=== PATIENT | female | born 1965 | race African-American/Black ===

== ENCOUNTER 2018-07-22 18:41 | Emergency (ER) | payer OTHER ==
[2018-07-22 18:55] VITALS: BP 170/112
[2018-07-22] MEDS ORDERED: predniSONE TAB* 20 MG PO ONE (20:43)
[2018-07-22] MEDS ORDERED: Amoxicillin/Clavulanate TAB* 875 MG PO ONE (20:43)
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
[2018-07-22 20:45] LABS: ABS Basophils 0 10^3/ul (0-0.2); ABS Eosinophils 0.3 10^3/ul (0-0.6); ABS Lymphocytes 3.1 10^3/ul (1.0-4.8); ABS Monocytes 0.9 10^3/ul (0-0.8); ABS Neutrophils 3.7 10^3/ul (1.5-7.7); ABS Nucleated RBC 0 10^3/ul; Hematocrit 42 % (35-47); Hemoglobin 14.1 g/dl (12.0-16.0); Lymphocyte % 38.3 % (25-47); Mean Corpuscular HGB Conc 34 g/dl (31-36); Mean Corpuscular Hemoglobin 31 pg (27-31); Mean Corpuscular Volume 92 fL (80-97); Mean Platelet Volume 10.2 um3 (7.4-10.4); Nucleated Red Blood Cells % 0.2; Platelet Count 194 10^3/ul (150-450); Red Blood Count 4.58 10^6/ul (4.00-5.40); Red Cell Distribution Width 14 % (10.5-15)
[2018-07-22] MEDS ORDERED: Ibuprofen TAB* 800 MG PO ONE (20:47)
[2018-07-22 21:02] LABS: EGFR Non-African American 38.7 (>60)
== END 2018-07-22 21:41 | disposition home or self-care (01) ==
LOC: ED 18:41
DX: J32.9 Chronic sinusitis, unspecified (principal); Z88.1 Allergy status to other antibiotic agents; Z91.048 Other nonmedicinal substance allergy status; F17.210 Nicotine dependence, cigarettes, uncomplicated
CPT/HCPCS: 36415; 80053; 85025; 99283; A9270-GY; J7512

== ENCOUNTER 2019-04-05 22:00 | Emergency (ER) | payer OTHER ==
[2019-04-06] MEDS ORDERED: Acetaminophen TAB* 325 MG PO ONE (00:57)
--- NOTE | 2019-04-06 01:08 | ED ---
Lower Extremity - HPI Summary HPI Summary: A 54 y/o female presents to [facility] with a chief complaint of left knee pain and left hand pain after a mechanical fall today. She tried to catch herself from her fall by falling on her left hand. She has pain in her left hand and abrasions on her left knee. She rated her pain as a 8/10 in severity. - History of Current Complaint Chief Complaint: EDExtremityUpper Stated Complaint: HURT LT HAND PER PT Time Seen by Provider: 04/06/19 00:51 Hx Obtained From: Patient Mechanism Of Injury: Fall From A Standing Position Onset of Pain: Immediate, Post Accident, Prior to Arrival Onset/Duration: Still Present Severity Initially: Severe Severity Currently: Severe Pain Intensity: 8 Pain Scale Used: 0-10 Numeric Timing: Constant, Lasting Hours Location: Is Discrete @ - left knee and left hand Associated Signs And Symptoms: Positive: Knee Pain. Negative: Fever Aggravating Factor(s): Nothing Alleviating Factor(s): Nothing - Allergies/Home Medications Allergies/Adverse Reactions: Allergies Allergy/AdvReac Type Severity Reaction Status Date / Time Adhesive Tape Allergy Rash Verified 04/06/19 00:55 MS Cefaclor [From [facility]] Allergy Dizziness Verified 04/06/19 00:55 Home Medications: Home Medications Metoprolol Succinate 50 mg PO DAILY 04/06/19 [History Confirmed 04/06/19] PMH/Surg Hx/FS Hx/Imm Hx Endocrine/Hematology History: Denies: Hx Diabetes Cardiovascular History: Reports: Hx Hypercholesterolemia, Hx Hypertension, Other Cardiovascular Problems/Disorders - Hx HTN Denies: Hx Pacemaker/ICD GI History: Reports: Other GI Disorders - Hx ulcer History: Denies: Hx Renal Disease Musculoskeletal History: Reports: Hx Back Problems, Other Musculoskeletal History - right rotater cuff problems Sensory History: Reports: Hx Contacts or Glasses Opthamlomology History: Reports: Hx Contacts or Glasses Neurological History: Reports: Other Neuro Impairments/Disorders - SCIATICA, PAIN CLINIC PT Psychiatric History: Reports: Hx Post Traumatic Stress Disorder, Hx Bipolar Disorder Denies: Hx Panic Disorder - Cancer History Hx Chemotherapy: No Hx Radiation Therapy: No - Surgical History Surgery Procedure, Year, and Place: Bunionectomy L foot, surgical repair R hand cut, laparoscopy x 2 Infectious Disease History: No Infectious Disease History: Denies: Traveled Outside the [place] in Last 30 Days - Family History Known Family History: Positive: Cardiac Disease - Social History Alcohol Use: Occasionally Hx Substance Use: Yes Substance Use Type: Reports: Marijuana Substance Use Comment - Amount & Last Used: daily Hx Tobacco Use: Yes Smoking Status (MU): Current Every Day Smoker Type: Cigarettes Amount Used/How Often: 1/2 ppd Have You Smoked in the Last Year: Yes Review of Systems Negative: Fever Positive: Arthralgia, Myalgia All Other Systems Reviewed And Are Negative: Yes Physical Exam - Summary Physical Exam Summary: Constitutional: Well-developed, Well-nourished, Alert. (-) Distressed Skin: Warm, Dry HENT: Normocephalic; Atraumatic Eyes: Conjunctiva normal Neck: Musculoskeletal ROM normal neck. (-) JVD, (-) Stridor, (-) Tracheal deviation Cardio: Rhythm regular, rate normal, Heart sounds normal; Intact distal pulses; The pedal pulses are 2+ and symmetric. Radial pulses are 2+ and symmetric. Pulmonary/Chest wall: Effort normal. (-) Respiratory distress, (-) Wheezes, (-) Rales Abd: Soft, (-) tenderness, (-) Distension, (-) Guarding, (-) Rebound Musculoskeletal: 2 abrasions over left anterior knee, no tenderness along tibia , no bony tenderness along tibia or ankle, No contusion on femur Left hand tiny abrasion center of palm at base of third digit, 4th and 5th metacarpals, some discomfort on ROM but able to do it, no bony tenderness wrist , radius, or ulna, no tenderness of wrist or axial node of left thumb. Neuro: Alert, Oriented x3 Psych: Mood and affect Normal Triage Information Reviewed: Yes Vital Signs On Initial Exam: Initial Vitals Temp Pulse Resp BP Pulse Ox 97.6 F 81 16 124/94 97 04/05/19 22:03 04/05/19 22:03 04/05/19 22:03 04/05/19 22:03 04/05/19 22:03 Vital Signs Reviewed: Yes Diagnostics - Vital Signs Vital Signs Temp Pulse Resp BP Pulse Ox 04/05/19 23:52 98.3 F 70 16 132/93 98 04/05/19 22:03 97.6 F 81 16 124/94 97 - Laboratory Lab Statement: Any lab studies that have been ordered have been reviewed, and results considered in the medical decision making process. - Radiology knee x-ray Radiology Interpretation Completed By: ED Physician Summary of Radiographic Findings: No fracture. Pending official imaging report. Hand x-ray Radiology Interpretation Completed By: ED Physician Summary of Radiographic Findings: No fracture. Pending official imaging report Lower Extremity Course/Dx - Course Course Of Treatment: A 54 y/o female presents to [facility] with a chief complaint of left knee pain and left hand pain after a mechanical fall today. She tried to catch herself from her fall by falling on her left hand. She has pain in her left hand and abrasions on her left knee. The physical exam revealed 2 abrasions over left anterior knee, no tenderness along tibia, no bony tenderness along tibia or ankle, No contusion on femur. Left hand tiny abrasion center of palm at base of third digit, 4th and 5th metacarpals, some discomfort on ROM but able to do it, no bony tenderness wrist, radius, or ulna, no tenderness of wrist or axial node of left thumb. Knee x-ray and hand x-ray show no fracture. In the ED course the patient was given Tylenol PO. The patient will be discharged home and follow up with her PCP. The patient is agreeable with this plan. - Diagnoses Provider Diagnoses: Hand contusion, Knee contusion Discharge - Sign-Out/Discharge Documenting (check all that apply): Patient Departure - DC Patient Received Moderate/Deep Sedation with Procedure: No - Discharge Plan Condition: Good Disposition: HOME Patient Education Materials: Contusion in Adults (ED), Knee Pain (ED) Referrals: Joan Kennedy MD [Primary Care Provider] - - Billing Disposition and Condition Condition: GOOD Disposition: Home - Attestation Statements Document Initiated by Cheryl: Yes Documenting Scribe: Nicko Bai Provider For Whom Cheryl is Documenting (Include Credential): Carlos Tang MD Scribe Attestation: Nicko Brown scribed for Carlos aTng MD on 04/06/19 at 0614. Scribe Documentation Reviewed: Yes Provider Attestation: The documentation as recorded by the Nicko alford accurately reflects the service I personally performed and the decisions made by me, Carlos Tang MD Status of Scribe Document: Viewed
[2019-04-06 03:11] VITALS: BP 135/79
== END 2019-04-06 03:10 | disposition home or self-care (01) ==
LOC: ED 22:00
DX: S60.222A Contusion of left hand, initial encounter (principal); S80.02XA Contusion of left knee, initial encounter; W19.XXXA Unspecified fall, initial encounter; I10 Essential (primary) hypertension; F17.210 Nicotine dependence, cigarettes, uncomplicated
CPT/HCPCS: 99282; A9270-GY

== ENCOUNTER 2019-08-24 15:05 | Emergency (ER) | payer OTHER ==
[2019-08-24] MEDS ORDERED: Ibuprofen TAB* 600 MG PO ONE (16:09)
--- NOTE | 2019-08-24 17:15 | ED ---
Skin Complaint - HPI Summary HPI Summary: This patient is a 54-year-old female presenting to the ED with an erythematous swollen area to the antecubital area of her right arm with a palpable cord. Patient had an IV placed 6 days ago, the area bruised up at the time and slowly became red over the past few days. She is endorsing pain, warmth, erythema, however no difficulty with bending at the arm. Denies history of DVT or PE. IV was placed as she had oral surgery. She has been taking ibuprofen daily. 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 Onset/Duration: Started Hours Ago Skin Exposure Onset/Duration: Hours Ago Timing: Constant Onset Severity: Moderate Current Severity: Moderate Pain Intensity: 7 Pain Scale Used: 0-10 Numeric Skin Location: Arm - right antecubital fossa Character: Swelling, Pain, Redness, Raised, Painful Aggravating Symptom(s): Nothing Alleviating Symptom(s): Nothing Related History: Trauma - Allergy/Home Medications Allergies/Adverse Reactions: Allergies Allergy/AdvReac Type Severity Reaction Status Date / Time Adhesive Tape Allergy Rash Verified 08/24/19 15:25 MS Cefaclor [From Ceclor] Allergy Dizziness Verified 08/24/19 15:25 PMH/Surg Hx/FS Hx/Imm Hx Previously Healthy: Yes Endocrine/Hematology History: Denies: Hx Diabetes Cardiovascular History: Reports: Hx Hypercholesterolemia, Hx Hypertension, Other Cardiovascular Problems/Disorders - Hx HTN Denies: Hx Pacemaker/ICD GI History: Reports: Other GI Disorders - Hx ulcer History: Denies: Hx Renal Disease Musculoskeletal History: Reports: Hx Back Problems, Other Musculoskeletal History - right rotater cuff problems Sensory History: Reports: Hx Contacts or Glasses Opthamlomology History: Reports: Hx Contacts or Glasses Neurological History: Reports: Other Neuro Impairments/Disorders - SCIATICA, PAIN CLINIC PT Psychiatric History: Reports: Hx Post Traumatic Stress Disorder, Hx Bipolar Disorder Denies: Hx Panic Disorder - Cancer History Hx Chemotherapy: No Hx Radiation Therapy: No - Surgical History Surgery Procedure, Year, and Place: Bunionectomy L foot, surgical repair R hand cut, laparoscopy x 2 - Immunization History Hx Pertussis Vaccination: No Immunizations Up to Date: Yes Infectious Disease History: No Infectious Disease History: Denies: Traveled Outside the [place] in Last 30 Days - Family History Known Family History: Positive: Cardiac Disease - Social History Occupation: Employed Full-time Lives: With Family Alcohol Use: Occasionally Hx Substance Use: Yes Substance Use Type: Reports: Marijuana Substance Use Comment - Amount & Last Used: daily Hx Tobacco Use: Yes Smoking Status (MU): Light Every Day Tobacco Smoker Type: Cigarettes Amount Used/How Often: 1/2 ppd Have You Smoked in the Last Year: Yes Review of Systems Negative: Fever, Chills, Fatigue, Skin Diaphoresis Negative: Palpitations, Chest Pain Negative: Shortness Of Breath, Cough Genitourinary: Negative Positive: no symptoms reported, see HPI Negative: Arthralgia, Myalgia Positive: Other - erythematous area with palpable cord to the R antecubital area All Other Systems Reviewed And Are Negative: Yes Physical Exam Triage Information Reviewed: Yes Vital Signs On Initial Exam: Initial Vitals Temp Pulse Resp BP Pulse Ox 99.3 F 80 20 127/88 96 08/24/19 15:21 08/24/19 15:21 08/24/19 15:21 08/24/19 15:21 08/24/19 15:21 Vital Signs Reviewed: Yes Appearance: Positive: Well-Appearing, Well-Nourished Skin: Positive: Other - erythema to the R antecubital fossa with warmth and swelling with obvious palpable cord extending proximally Head/Face: Positive: Normal Head/Face Inspection Eyes: Positive: EOMI, BRITTNEY, Conjunctiva Clear Neck: Positive: Supple, No Lymphadenopathy Respiratory/Lung Sounds: Positive: Clear to Auscultation, Breath Sounds Present Cardiovascular: Positive: Normal, RRR, Pulses are Symmetrical in both Upper and Lower Extremities Musculoskeletal: Positive: Normal, Strength/ROM Intact Neurological: Positive: Speech Normal Psychiatric: Positive: Affect/Mood Appropriate AVPU Assessment: Alert Procedures - Sedation Patient Received Moderate/Deep Sedation with Procedure: No Diagnostics - Vital Signs Vital Signs Temp Pulse Resp BP Pulse Ox 08/24/19 15:21 99.3 F 80 20 127/88 96 - Laboratory Lab Statement: Any lab studies that have been ordered have been reviewed, and results considered in the medical decision making process. Course/Dx - Course Course Of Treatment: Physical examination, there is a 4 x 4 centimeter in diameter erythematous, warm, circular area to the right antecubital area of the right arm. There is a small palpable cord as well. This is consistent with a superficial phlebitis from IV placement. However the erythema has been spreading with diffuse edema over the past few days. Patient is concerned for a blood clot to this area. No history of DVT or PE. Patient has no difficulty with flexion or extension of the arm, however endorses an 8/10 pain. Denies any fevers, sweats, chills. She continues to take ibuprofen with no relief. Ultrasound DVT upper extremity obtained: Occlusive thrombous of the cephalic vein. Pt dx with superficial thrombophlebitis, encouraged NSAIDS, ice and heat and close follow up for resolution of symptoms. - Differential Diagnoses - Skin Complaint Differential Diagnoses: Other - Superficial phlebitis, superficial thrombophlebitis, DVT, irritation, allergic reaction, cellulitis - Diagnoses Provider Diagnoses: Phlebitis Discharge ED - Sign-Out/Discharge Documenting (check all that apply): Patient Departure - Discharge Plan Condition: Stable Disposition: HOME Patient Education Materials: Superficial Thrombophlebitis (ED) Referrals: Joan Kennedy MD [Primary Care Provider] - Additional Instructions: Symptomatic care includes extremity elevation, warm or cool compresses, and oral nonsteroidal anti-inflammatory agents (NSAIDS). - Billing Disposition and Condition Condition: STABLE Disposition: Home
[2019-08-24 17:58] VITALS: BP 121/82
== END 2019-08-24 17:49 | disposition home or self-care (01) ==
LOC: ED 15:05
DX: I80.9 Phlebitis and thrombophlebitis of unspecified site (principal); E78.00 Pure hypercholesterolemia, unspecified; I10 Essential (primary) hypertension; F43.10 Post-traumatic stress disorder, unspecified; F31.9 Bipolar disorder, unspecified; F17.210 Nicotine dependence, cigarettes, uncomplicated; Z88.1 Allergy status to other antibiotic agents
CPT/HCPCS: 99282; A9270-GY